=== PATIENT | male | born 1995 | race Caucasian/White ===

== ENCOUNTER 2021-06-28 14:16 | Emergency (ER) | payer OTHER, SELFPAY ==
[2021-06-28 14:28] VITALS: BP 160/100; PULSE 103; RESP 13; TEMP 36.7; O2SAT 98; BMI 31.8
--- NOTE | 2021-06-28 14:28 | ED_ITS ---
HPI - Nausea/Vomiting/Diarrhea General: Chief complaint: Nausea/Vomiting/Diarrhea Stated complaint: n/v Time Seen by Provider: 06/28/21 14:24 Source: patient Mode of arrival: ambulatory Limitations: no limitations History of Present Illness: 26-year-old male presents emergency room with nausea vomiting diarrhea that began this morning when he woke up. No fever no sweats or chills no real abdominal pain. No hematochezia melena hematemesis coffee-ground emesis no dysuria urgency or frequency. No chest pain. MD elicited complaint: nausea and vomiting Onset (ago): hour(s) Description of vomiting: watery and bilious Associated nausea: Yes Associated abdominal pain: No Location of pain: None Exacerbating factors: none Relieving factors: none Context: possible food poisoning (Patient's therapy) Associated symtoms: Reports anorexia, malaise and nausea; Denies altered mental status, anxiety, bloating, change in vision, chest pain, cough, diaphoresis, decreased urine output, dizziness, dysuria, epistaxis, fatigue, fecal incontinence, fevers/chills, headache(s), myalgias, numbness, palpitations, rash, short of breath, syncope, tenesmus, tinnitus or weakness Review of Systems Const: Reports: change in appetite and malaise; Denies: fever(s), chills, fatigue or diaphoresis Eyes: Denies: change in vision ENMT: Denies: tinnitus or epistaxis Card: Denies: chest pain, palpitations or syncope GI: Reports: nausea, vomiting and diarrhea; Denies: abdominal pain, bloating or fecal incontinence : Denies: flank pain, difficulty urinating, dysuria, urinary frequency or urinary urgency Skin/Breast: Denies: rash or pruritus Neuro: Denies: headache(s) or dizziness Psych: Denies: anxiety PFSH ED PFSH: Medical History (Updated 07/06/21 @ 00:01 by ) No significant past medical history Surgical History (Updated 06/28/21 @ 15:19 by Viet Thapa DO) History of bronchoscopy Social History (Updated 06/28/21 @ 15:19 by Viet Thapa DO) Smoking and tobacco status: never smoked Alcohol intake: current Physical Exam Const: EXAM LIMITATIONS: no altered mental status GENERAL APPEARANCE: cooperative and comfortable ORIENTATION/CONSCIOUSNESS: Yes awake, Yes oriented to person, Yes oriented to place and Yes oriented to time HENMT: COMMON NORMALS: normocephalic, atraumatic and hearing grossly normal bilaterally HEAD & SCALP: normocephalic and atraumatic Neck/C-Spine: COMMON NORMALS: no JVD Resp: COMMON NORMALS: normal respiratory effort, No retractions, No use of accessory muscles and clear to auscultation bilaterally AUSCULTATION: clear to auscultation bilaterally Cardio: COMMON NORMALS: no JVD, regular rate, regular rhythm and No murmurs present (Cardio) RATE: regular rate RHYTHM: regular rhythm GI: COMMON NORMALS: Soft to palpation and No hepatosplenomegaly present AUSCULTATION: Yes normoactive bowel sounds PALPATION: Yes Soft to palpation, No Tenderness to palpation present (GI), No Guarding due to palpation present (GI) and Yes No hepatosplenomegaly present Extremity: COMMON NORMALS: normal to inspection, capillary refill normal, no clubbing, cyanosis or edema, no calf tenderness and no pedal edema Neuro: SENSORIUM/ORIENTATION: Yes oriented to person, Yes oriented to place and Yes oriented to time Skin: COMMON NORMALS: no rashes or lesions noted GENERAL SKIN EXAM: no rashes or lesions noted Course Vital Signs: Vital signs: Vital Signs Temperature 98.0 F 06/28/21 14:28 Pulse Rate 91 06/28/21 18:14 Respiratory Rate 20 H 06/28/21 18:14 Blood Pressure 142/76 06/28/21 18:14 Pulse Oximetry 97 06/28/21 18:14 MDM - Nausea/Vomiting/Diarrhea Medical Decision Making Labs and imaging reviewed. No acute disease. We will go and discharge patient home clinical diet advance as tolerated antiemetics as needed return if has problems Medical Records I reviewed the patient's medical records. Lab Data I reviewed the patient's lab results. : 06/28/21 14:55 06/28/21 14:55 Laboratory Results WBC 19.6 10^3/uL (4.0-10.0) H 06/28/21 14:55 RBC 5.78 10^6/uL (4.1-5.3) H 06/28/21 14:55 Hgb 17.4 g/dL (11.7-16.6) H 06/28/21 14:55 Hct 51.7 % (42.0-52.0) 06/28/21 14:55 MCV 89.4 fl (80-94) 06/28/21 14:55 MCH 30.1 pg (28.0-34.0) 06/28/21 14:55 MCHC 33.7 g/dL (30.0-36.0) 06/28/21 14:55 RDW 12.4 % (12.1-15.1) 06/28/21 14:55 Plt Count 279 10^3/cmm (130-400) 06/28/21 14:55 MPV 9.3 fL (7.4-10.4) 06/28/21 14:55 Neut % (Auto) 91.2 % 06/28/21 14:55 Lymph % (Auto) 2.4 % 06/28/21 14:55 [place] % (Auto) 5.3 % 06/28/21 14:55 Eos % (Auto) 0.1 % 06/28/21 14:55 Baso % (Auto) 0.2 % 06/28/21 14:55 Neut # (Auto) 17.88 10^3/uL (1.8-7.7) H 06/28/21 14:55 Lymph # (Auto) 0.5 10^3/uL (0.8-4.8) L 06/28/21 14:55 [place] # (Auto) 1.1 10^3/uL (0.2-0.9) H 06/28/21 14:55 Eos # (Auto) 0.0 10^3/uL (0.0-0.8) 06/28/21 14:55 Baso # (Auto) 0.0 10^3/uL (0.0-0.1) 06/28/21 14:55 Nucleated RBC % (auto) 0 % 06/28/21 14:55 Nucleated RBCs # 0.0 /100WBC 06/28/21 14:55 Sodium 138 mmol/L (136-145) 06/28/21 14:55 Potassium 4.2 mmol/L (3.5-5.1) 06/28/21 14:55 Chloride 102 mmol/L (98-107) 06/28/21 14:55 Carbon Dioxide 22 mmol/L (22-29) 06/28/21 14:55 Anion Gap 18.2 (5-19) 06/28/21 14:55 BUN 16 mg/dL (6-20) 06/28/21 14:55 Creatinine 0.9 mg/dL (0.7-1.2) 06/28/21 14:55 GFR Calculation 102.0 mL/min (90-130) 06/28/21 14:55 Glucose 124 mg/dL (65-115) H 06/28/21 14:55 Calculated Osmolality 289 mOsm/kg (285-295) 06/28/21 14:55 Calcium 8.5 mg/dL (8.5-10.5) 06/28/21 14:55 Total Bilirubin 0.8 mg/dL (0.15-1.2) 06/28/21 14:55 AST 42 U/L (0-40) H 06/28/21 14:55 ALT 75 U/L (0-41) H 06/28/21 14:55 Alkaline Phosphatase 60 IU/L (40-130) 06/28/21 14:55 Total Protein 7.6 g/dL (6.6-8.7) 06/28/21 14:55 Albumin 4.8 g/dL (3.5-5.2) 06/28/21 14:55 Globulin 2.8 g/dL (1.3-4.6) 06/28/21 14:55 Lipase 20 U/L (13-60) 06/28/21 14:55 Urine Color Dark yellow (Yellow) 06/28/21 16:40 Urine Appearance Clear (CLEAR) 06/28/21 16:40 Urine pH 6 (5-7) 06/28/21 16:40 Ur Specific [place] 1.010 (1.005-1.030) 06/28/21 16:40 Urine Protein Trace (Negative) 06/28/21 16:40 Urine Glucose (UA) Norm (Normal) 06/28/21 16:40 Urine Ketones Negative (Negative) 06/28/21 16:40 Urine Blood Neg (Negative) 06/28/21 16:40 Urine Nitrate Negative (Negative) 06/28/21 16:40 Urine Bilirubin 1+ (Negative) H 06/28/21 16:40 Urine Urobilinogen Neg mg/dL (Negative) 06/28/21 16:40 Ur Leukocyte Esterase Negative (Negative) 06/28/21 16:40 Urine RBC Rare /hpf (0-2) 06/28/21 16:40 Urine WBC Rare /hpf (0-5) 06/28/21 16:40 Ur Squamous Epith Cells Rare /hpf (0-5) 06/28/21 16:40 Amorphous Sediment Not Reportable 06/28/21 16:40 Urine Bacteria Trace /hpf (NONE) 06/28/21 16:40 Urine Mucus 3+ /hpf 06/28/21 16:40 Discharge Plan Discharge Patient Disposition: Home Clinical Impression: Gastroenteritis Condition: Stable Prescriptions: New ondansetron HCl 4 mg tablet 4 mg PO Q6H PRN (Reason: nausea and vomiting) Qty: 20 0RF Discharge Orders: Discharge ED (Routine); Ordered 06/28/21 Ordered By: Viet Thapa Referrals: [facility] [Other] Discharge Diet: Clear Liquid Discharge Activity: Increase activity as tolerated Patient Instructions: Opioid Safety Activity Restrictions/Additional Instructions: Liquid diet for 24 to 48 hours then advance as tolerated Coding Level of Care Code ED Labor Crew Supervisor for Gloria Fwd Exam Comprehensive
[2021-06-28] MEDS: lactated ringers 1,000 ML 999 ML IV ×2 (14:48→16:40)
[2021-06-28] MEDS: ondansetron 2 mg/ML SDV 2 mL 4 MG IVP (14:48)
[2021-06-28 15:11] VITALS: BP 135/82; O2SAT 97
[2021-06-28 15:11] LABS: Basophils % 0.2 %; Eosinophils % 0.1 %; Hematocrit 51.7 % (42.0-52.0); Hemoglobin 17.4 g/dL (11.7-16.6); Lymphocytes # 0.5 10^3/uL (0.8-4.8); Lymphocytes % 2.4 %; Mean Corpuscular HGB Conc 33.7 g/dL (30.0-36.0); Mean Corpuscular Hemoglobin 30.1 pg (28.0-34.0); Mean Corpuscular Volume 89.4 fl (80-94); Mean Platelet Volume 9.3 fL (7.4-10.4); Monocytes # 1.1 10^3/uL (0.2-0.9); Monocytes % 5.3 %; Neutrophils # 17.88 10^3/uL (1.8-7.7); Neutrophils % 91.2 %; Nucleated Red Blood Cells % 0 %; Platelet Count 279 10^3/cmm (130-400); Red Blood Count 5.78 10^6/uL (4.1-5.3); Red Cell Distribution Width 12.4 % (12.1-15.1); White Blood Count 19.6 10^3/uL (4.0-10.0)
[2021-06-28 15:41] LABS: Alanine Aminotransferase 75 U/L (0-41); Albumin Level 4.8 g/dL (3.5-5.2); Alkaline Phosphatase 60 IU/L (40-130); Anion Gap 18.2 (5-19); Aspartate Amino Transferase 42 U/L (0-40); Blood Urea Nitrogen 16 mg/dL (6-20); Calcium 8.5 mg/dL (8.5-10.5); Carbon Dioxide 22 mmol/L (22-29); Chloride 102 mmol/L (98-107); Globulin 2.8 g/dL (1.3-4.6); Glucose 124 mg/dL (65-115); Lipase 20 U/L (13-60); Osmolality Calculated 289 mOsm/kg (285-295); Potassium 4.2 mmol/L (3.5-5.1); Sodium 138 mmol/L (136-145); Total Bilirubin 0.8 mg/dL (0.15-1.2); Total Protein 7.6 g/dL (6.6-8.7)
[2021-06-28 17:10] VITALS: BP 164/92; PULSE 90; O2SAT 99
[2021-06-28 17:23] LABS: Add Urine Microscopic? YES; Bilirubin Urine 1+ (Negative); Blood Urine Neg (Negative); Glucose Urine UA Norm (Normal); Ketones Urine Negative (Negative); Leukocyte Esterase Urine Negative (Negative); Nitrate Urine Negative (Negative); Protein Urine Trace (Negative); Urine Appearance Clear (CLEAR); Urine Color Dark Yellow (Yellow); Urobilinogen Urine Neg (Negative); pH Urine 6 (5-7)
[2021-06-28 17:25] LABS: Add Urine Culture? No; Bacteria Urine TRACE /hpf; Mucus Urine 3+ /hpf; RBC Urine RARE /hpf (0-2); Squamous Epithelial Cell Urine RARE /hpf (0-5); WBC Urine RARE /hpf (0-5)
[2021-06-28 18:14] VITALS: BP 142/76; PULSE 91; RESP 20; O2SAT 97
== END 2021-06-28 18:16 | disposition home or self-care (01) ==
PROVIDERS: Emergency Provider Family Medicine
DX: K52.9 Noninfective gastroenteritis and colitis, unspecified (principal)
CPT/HCPCS: 80053; 81001; 83690; 85025; 96361; 96374; 99283; J2405

== ENCOUNTER 2021-11-30 22:31 | Emergency (ER) | payer OTHER, SELFPAY ==
[2021-11-30 22:39] VITALS: BP 132/86; PULSE 76; RESP 16; TEMP 36.4; O2SAT 98
[2021-11-30 23:40] LABS: Basophils % 0.3 %; Eosinophils # 0.3 10^3/uL (0.0-0.8); Eosinophils % 3.9 %; Hematocrit 43.4 % (42.0-52.0); Hemoglobin 15.1 g/dL (11.7-16.6); Lymphocytes # 3.3 10^3/uL (0.8-4.8); Lymphocytes % 44.9 %; Mean Corpuscular HGB Conc 34.8 g/dL (30.0-36.0); Mean Corpuscular Hemoglobin 29.7 pg (28.0-34.0); Mean Corpuscular Volume 85.4 fl (80-94); Mean Platelet Volume 9.6 fL (7.4-10.4); Monocytes # 0.9 10^3/uL (0.2-0.9); Monocytes % 12.7 %; Neutrophils # 2.77 10^3/uL (1.8-7.7); Neutrophils % 37.5 %; Nucleated Red Blood Cells % 0 %; Platelet Count 276 10^3/cmm (130-400); Red Blood Count 5.08 10^6/uL (4.1-5.3); White Blood Count 7.4 10^3/uL (4.0-10.0)
--- NOTE | 2021-12-01 | CTR_ITS ---
PROCEDURE INFORMATION: Exam: CT Abdomen And Pelvis With Contrast Exam date and time: 12/01/2021 12:09 AM Age: 26 years old Clinical indication: Abdominal pain; Localized; Right upper quadrant (ruq); Patient HX: C/O ruq/periumbilical pain; Additional info: Right upper quadrant abdominal pain-severe TECHNIQUE: Imaging protocol: Computed tomography of the abdomen and pelvis with contrast. Radiation optimization: All CT scans at this facility use at least one of these dose optimization techniques: automated exposure control; mA and/or kV adjustment per patient size (includes targeted exams where dose is matched to clinical indication); or iterative reconstruction. Contrast material: OMNI 350; Contrast volume: 80 ml; Contrast route: INTRAVENOUS (IV); COMPARISON: No relevant prior studies available. RADIATION DOSE METRICS: Total DLP (mGy-cm): 1074.77 FINDINGS: Liver: Normal. No mass. Gallbladder and bile ducts: Contracted gallbladder. Pancreas: Normal. No ductal dilation. Spleen: One or more accessory splenules. Adrenal glands: Normal. No mass. Kidneys and ureters: Normal. No hydronephrosis. Stomach and bowel: Unremarkable. No obstruction. No mucosal thickening. Appendix: Normal appendix. Intraperitoneal space: Unremarkable. No free air. No significant fluid collection. Vasculature: Unremarkable. No abdominal aortic aneurysm. Lymph nodes: Unremarkable. No enlarged lymph nodes. Urinary bladder: Unremarkable as visualized. Reproductive: Unremarkable as visualized. Bones/joints: Unremarkable. No acute fracture. Soft tissues: Unremarkable. CT/CT abdomen pelvis w con* [id number] IMPRESSION: No acute findings.
[2021-12-01 00:01] LABS: Alanine Aminotransferase 27 U/L (0-41); Albumin Level 4.2 g/dL (3.5-5.2); Alkaline Phosphatase 62 U/L (40-130); Anion Gap 13.6 (5-19); Aspartate Amino Transferase 42 U/L (0-40); Blood Urea Nitrogen 11 mg/dL (6-20); Calcium 8.9 mg/dL (8.5-10.5); Carbon Dioxide 27 mmol/L (22-29); Chloride 104 mmol/L (98-107); Globulin 2.7 g/dL (1.3-4.6); Glomerular Filtration Rate 116.9 mL/min (90-130); Glucose 90 mg/dL (65-115); Lipase 36 U/L (13-60); Osmolality Calculated 291 mOsm/kg (285-295); Potassium 3.6 mmol/L (3.5-5.1); Sodium 141 mmol/L (136-145); Total Bilirubin 0.4 mg/dL (0.15-1.2); Total Protein 6.9 g/dL (6.6-8.7)
[2021-12-01] MEDS: iohexol 350 mg/mL 100 mL Btl IV (00:12)
[2021-12-01 00:34] VITALS: RESP 16; O2SAT 99
[2021-12-01] MEDS: fentaNYL 50 mcg/mL INJ 2mL 25 MCG IVP (00:34)
--- NOTE | 2021-12-01 01:26 | USR_ITS ---
PROCEDURE INFORMATION: Exam: US Abdomen, Limited; Right Upper Quadrant Exam date and time: 12/01/2021 1:49 AM Age: 26 years old Clinical indication: Abdominal pain; Periumbilical; Patient HX: Pain 2 days. Eating does not change pain; Additional info: Ruq abd pain, gallbladder TECHNIQUE: Imaging protocol: Real time ultrasound of the abdomen with image documentation. Limited exam focused on the right upper quadrant. COMPARISON: CT abdomen pelvis w con* [id number] 12/01/2021 12:09 AM FINDINGS: Liver: 17.4 cm liver. Gallbladder: Normal 2 mm gallbladder wall. Biliary ducts: 5.1 mm common bile duct which is normal. Pancreas: Visualized pancreas is unremarkable. Right kidney: 10.7 x 4.3 x 5.7 cm right kidney. 1.4 cm right renal cortex. 2.1 cm maximum abdominal aortic diameter. Inferior vena cava: 1.3 cm diameter IVC. US/US abdomen limited [id number] IMPRESSION: Normal gallbladder.
--- NOTE | 2021-12-01 01:53 | W.ED.ABDPA2 ---
Documented by User: HAROLDO Whitehead 12/01/21 02:41 HPI - Abdominal Pain General: Chief Complaint: Abdominal Pain Stated Complaint: abd pain Time Seen by Provider: 11/30/21 23:40 History of Present Illness: 26-year-old male patient that is in today for right upper quadrant abdominal pain x3 days. Patient reports that 2 to 3 days ago he started having right upper quadrant abdominal pain. He denies any injury to the area. He reports that the pain is pretty sharp. He reports that it is worse with palpation and movement. He reports that he has had this pain in the past a couple of months ago and it lasted a couple of days and then went away. He denies any fever, chills, nausea, vomiting. He denies radiation of pain. He denies urinary symptoms. He denies any previous abdominal surgery. Associated Symptoms: Denies change in bowel habits, chills, constipation, diarrhea, dysuria, fever(s), nausea and vomiting Review of Systems Const: Denies: fever(s), chills or body aches Card: Denies: chest pain or palpitations Resp: Denies: dyspnea GI: Reports: abdominal pain; Denies: nausea, vomiting, diarrhea, constipation or change in bowel habits : Denies: flank pain, difficulty urinating, dysuria, urinary frequency, urinary urgency or urinary hesitancy [facility] ED PFSH: Medical History No significant past medical history Surgical History History of bronchoscopy Social History Smoking and tobacco status: never smoked Alcohol intake: current Physical Exam Const: COMMON NORMALS: no acute distress, patient oriented x3 and alert NUTRITIONAL APPEARANCE: obese Neck/C-Spine: COMMON NORMALS: no JVD Resp: COMMON NORMALS: normal respiratory effort, No retractions, No use of accessory muscles and clear to auscultation bilaterally AUSCULTATION: clear to auscultation bilaterally Cardio: COMMON NORMALS: no JVD, regular rate, regular rhythm, S1 normal heart sound present, S2 normal heart sound present and No murmurs present (Cardio) RATE: regular rate RHYTHM: regular rhythm HEART SOUNDS: S1 normal heart sound present and S2 normal heart sound present GI: COMMON NORMALS: Normal to inspection, nondistended, normoactive bowel sounds present and Soft to palpation PALPATION: Yes Soft to palpation, Yes Tenderness to palpation present (GI) Details: RLQ and RUQ and Yes Guarding due to palpation present (GI) in the RUQ Neuro: COMMON NORMALS: patient oriented x3 SENSORIUM/ORIENTATION: Yes alert Course Vital Signs: Vital signs: Vital Signs Temperature 97.5 F L 11/30/21 22:39 Pulse Rate 76 11/30/21 22:39 Respiratory Rate 16 12/01/21 00:34 Blood Pressure 132/86 11/30/21 22:39 Pulse Oximetry 99 12/01/21 00:34 Oxygen Delivery Me thod 11/30/21 22:39 MDM - Abdominal Pain Medical Decision Making 26-year-old male patient in today for right upper quadrant abdominal pain. He has had this in the past a couple of different times seems to last for a day or 2 and then goes away. His white blood cell count is normal, his lipase is normal, his CT abdomen and pelvis is unremarkable. His symptoms appear consistent with biliary colic. Patient recalls his diet from the day and it was pizza, salami. Limited abdominal ultrasound ordered. 1 dose of pain medication given 25 mcg fentanyl. Gallbladder ultrasound is negative. I discussed results of testing with patient, at length. I advised patient symptoms seem consistent with biliary colic. We discussed dietary modifications to help control this. We discussed the potential that patient may need an outpatient HIDA scan. I advised that I would defer this to his primary care provider for continued monitoring and evaluation as they deem necessary. Advised patient to return to the ER as needed for new or worsening symptoms. Lab Data : 11/30/21 23:25 11/30/21 23:25 Labs/Radiology: Radiology Impressions Abdomen/Pelvis CT 12/01/21 00:00 IMPRESSION: No acute findings. Abdomen Ultrasound 12/01/21 01:26 IMPRESSION: Normal gallbladder. Laboratory Results WBC 7.4 10^3/uL (4.0-10.0) 11/30/21 23:25 RBC 5.08 10^6/uL (4.1-5.3) 11/30/21 23:25 Hgb 15.1 g/dL (11.7-16.6) 11/30/21 23:25 Hct 43.4 % (42.0-52.0) 11/30/21 23: MCV 85.4 fl (80-94) 11/30/21 23: MCH 29.7 pg (28.0-34.0) 11/30/21 23: MCHC 34.8 g/dL (30.0-36.0) 11/30/21: RDW 12.0 % (12.1-15.1) L 11/30/21 23: Plt Count 276 10^3/cmm (130-400) 11/30/21 23: MPV 9.6 fL (7.4-10.4) 11/30/21: Neut % (Auto) 37.5 % 11/30/21: Lymph % (Auto) 44.9 % 11/30/21: [place] % (Auto) 12.7 % 11/30/21: Eos % (Auto) 3.9 % 11/30/21 23: Baso % (Auto) 0.3 % 11/30/21: Neut # (Auto) 2.77 10^3/uL (1.8-7.7) 11/30/21: Lymph # (Auto) 3.3 10^3/uL (0.8-4.8) 11/30/21: [place] # (Auto) 0.9 10^3/uL (0.2-0.9) 11/30/21: Eos # (Auto) 0.3 10^3/uL (0.0-0.8) 11/30/21: Baso # (Auto) 0.0 10^3/uL (0.0-0.1) 11/30/21: Nucleated RBC % (auto) 0 % 11/30/21: Nucleated RBCs # 0.0 /100WBC 11/30/21 23: Sodium 141 mmol/L (136-145) 11/30/21 23:25 Potassium 3.6 mmol/L (3.5-5.1) 11/30/21: Chloride 104 mmol/L (98-107) 11/30/21 23:25 Carbon Dioxide 27 mmol/L (22-29) 11/30/21 23:25 Anion Gap 13.6 (5-19) 11/30/21 23:25 BUN 11 mg/dL (6-20) 11/30/21 23:25 Creatinine 0.8 mg/dL (0.7-1.2) 11/30/21 23:25 GFR Calculation 116.9 mL/min (90-130) 11/30/21 23:25 Glucose 90 mg/dL (65-115) 11/30/21 23:25 Calculated Osmolality 291 mOsm/kg (285-295) 11/30/21 23:25 Calcium 8.9 mg/dL (8.5-10.5) 11/30/21 23:25 Total Bilirubin 0.4 mg/dL (0.15-1.2) 11/30/21 23:25 AST 42 U/L (0-40) H 11/30/21 23:25 ALT 27 U/L (0-41) 11/30/21 23:25 Alkaline Phosphatase 62 U/L (40-130) 11/30/21 23:25 Total Protein 6.9 g/dL (6.6-8.7) 11/30/21 23:25 Albumin 4.2 g/dL (3.5-5.2) 11/30/21 23:25 Globulin 2.7 g/dL (1.3-4.6) 11/30/21 23:25 Lipase 36 U/L (13-60) 11/30/21 23:25 Discharge Plan Discharge Patient Disposition: Home Clinical Impression: Biliary colic Condition: Stable Prescriptions: No Action ondansetron HCl 4 mg tablet 4 mg PO Q6H PRN (Reason: nausea and vomiting) Qty: 20 0RF Discharge Orders: Discharge ED (Routine); Ordered 12/01/21 Ordered By: Charito Monroy Discharge Diet: Low Fat Discharge Activity: Increase activity as tolerated Patient Instructions: Biliary Colic (ED), Abdominal Pain (ED) Activity Restrictions/Additional Instructions: Your CT scan and abdominal ultrasound today did not show any acute process in the gallbladder, appendix, abdomen. I recommend a diet to help with biliary colic including decreased caffeine, decrease nicotine, decrease fried fatty foods, decrease red sauce. Follow-up with primary care next week for continued evaluation. You may need a HIDA scan for further evaluation. Return to the ER as needed for any new or worsening symptoms. Coding Level of Care Code ED Solar Resource Assessor for Chg Fwd Exam Detailed Documented by User: Guillermo Worthington DO 12/01/21 02:42 HPI - Abdominal Pain General: Chief Complaint: Abdominal Pain Stated Complaint: abd pain Time Seen by Provider: 11/30/21 23:40 PFSH ED PFSH: Medical History No significant past medical history Surgical History History of bronchoscopy Social History Smoking and tobacco status: never smoked Alcohol intake: current Course Vital Signs: Vital signs: Vital Signs Temperature 97.5 F L 11/30/21 22:39 Pulse Rate 76 11/30/21 22:39 Respiratory Rate 16 12/01/21 00:34 Blood Pressure 132/86 11/30/21 22:39 Pulse Oximetry 99 12/01/21 00:34 Oxygen Delivery Me thod 11/30/21 22:39 MDM - Abdominal Pain Medical Decision Making 26-year-old male patient in today for right upper quadrant abdominal pain. He has had this in the past a couple of different times seems to last for a day or 2 and then goes away. His white blood cell count is normal, his lipase is normal, his CT abdomen and pelvis is unremarkable. His symptoms appear consistent with biliary colic. Patient recalls his diet from the day and it was pizza, salami. Limited abdominal ultrasound ordered. 1 dose of pain medication given 25 mcg fentanyl. Gallbladder ultrasound is negative. I discussed results of testing with patient, at length. I advised patient symptoms seem consistent with biliary colic. We discussed dietary modifications to help control this. We discussed the potential that patient may need an outpatient HIDA scan. I advised that I would defer this to his primary care provider for continued monitoring and evaluation as they deem necessary. Advised patient to return to the ER as needed for new or worsening symptoms. This patient was originally seen by MARLINE Bello.? I agree with her history, evaluation, and treatment. Lab Data : 11/30/21 23:25 11/30/21 23:25 Labs/Radiology: Radiology Impressions Abdomen/Pelvis CT 12/01/21 00:00 IMPRESSION: No acute findings. Abdomen Ultrasound 12/01/21 01:26 IMPRESSION: Normal gallbladder. Laboratory Results WBC 7.4 10^3/uL (4.0-10.0) 11/30/21 23: RBC 5.08 10^6/uL (4.1-5.3) 11/30/21 23: Hgb 15.1 g/dL (11.7-16.6) 11/30/21 23:25 Hct 43.4 % (42.0-52.0) 11/30/21 23: MCV 85.4 fl (80-94) 11/30/21 23:25 MCH 29.7 pg (28.0-34.0) 11/30/21 23: MCHC 34.8 g/dL (30.0-36.0) 11/30/21 23:25 RDW 12.0 % (12.1-15.1) L 11/30/21 23: Plt Count 276 10^3/cmm (130-400) 11/30/21 23:25 MPV 9.6 fL (7.4-10.4) 11/30/21 23:25 Neut % (Auto) 37.5 % 11/30/21 23:25 Lymph % (Auto) 44.9 % 11/30/21 23:25 [place] % (Auto) 12.7 % 11/30/21 23:25 Eos % (Auto) 3.9 % 11/30/21 23: Baso % (Auto) 0.3 % 11/30/21 23:25 Neut # (Auto) 2.77 10^3/uL (1.8-7.7) 11/30/21 23:25 Lymph # (Auto) 3.3 10^3/uL (0.8-4.8) 11/30/21 23:25 [place] # (Auto) 0.9 10^3/uL (0.2-0.9) 11/30/21 23:25 Eos # (Auto) 0.3 10^3/uL (0.0-0.8) 11/30/21 23:25 Baso # (Auto) 0.0 10^3/uL (0.0-0.1) 11/30/21 23:25 Nucleated RBC % (auto) 0 % 11/30/21 23:25 Nucleated RBCs # 0.0 /100WBC 11/30/21 23:25 Sodium 141 mmol/L (136-145) 11/30/21 23:25 Potassium 3.6 mmol/L (3.5-5.1) 11/30/21 23:25 Chloride 104 mmol/L (98-107) 11/30/21 23:25 Carbon Dioxide 27 mmol/L (22-29) 11/30/21 23:25 Anion Gap 13.6 (5-19) 11/30/21 23:25 BUN 11 mg/dL (6-20) 11/30/21 23:25 Creatinine 0.8 mg/dL (0.7-1.2) 11/30/21 23:25 GFR Calculation 116.9 mL/min (90-130) 11/30/21 23:25 Glucose 90 mg/dL (65-115) 11/30/21 23:25 Calculated Osmolality 291 mOsm/kg (285-295) 11/30/21 23:25 Calcium 8.9 mg/dL (8.5-10.5) 11/30/21 23:25 Total Bilirubin 0.4 mg/dL (0.15-1.2) 11/30/21 23:25 AST 42 U/L (0-40) H 11/30/21 23:25 ALT 27 U/L (0-41) 11/30/21 23:25 Alkaline Phosphatase 62 U/L (40-130) 11/30/21 23:25 Total Protein 6.9 g/dL (6.6-8.7) 11/30/21 23:25 Albumin 4.2 g/dL (3.5-5.2) 11/30/21 23:25 Globulin 2.7 g/dL (1.3-4.6) 11/30/21 23:25 Lipase 36 U/L (13-60) 11/30/21 23:25 Discharge Plan Discharge Patient Disposition: Home Clinical Impression: Biliary colic Condition: Stable Prescriptions: No Action ondansetron HCl 4 mg tablet 4 mg PO Q6H PRN (Reason: nausea and vomiting) Qty: 20 0RF Discharge Orders: Discharge ED (Routine); Ordered 12/01/21 Ordered By: Charito Monroy Discharge Diet: Low Fat Discharge Activity: Increase activity as tolerated Patient Instructions: Biliary Colic (ED), Abdominal Pain (ED) Activity Restrictions/Additional Instructions: Your CT scan and abdominal ultrasound today did not show any acute process in the gallbladder, appendix, abdomen. I recommend a diet to help with biliary colic including decreased caffeine, decrease nicotine, decrease fried fatty foods, decrease red sauce. Follow-up with primary care next week for continued evaluation. You may need a HIDA scan for further evaluation. Return to the ER as needed for any new or worsening symptoms. Coding Level of Care Code ED Solar Resource Assessor for Chg Fwd Exam Detailed
== END 2021-12-01 02:56 | disposition home or self-care (01) ==
PROVIDERS: Emergency Medicine; Emergency Provider Nurse Practitioner Family
DX: R10.84 Generalized abdominal pain (principal)
CPT/HCPCS: 74177; 76705; 80053; 83690; 85025; 96374; 99285; J3010; Q9967

== ENCOUNTER → 2021-12-26 08:46 | Outpatient (BNVA) | payer OTHER, SELFPAY | PROVIDERS: PCP Emergency Medicine Emergency Medical Services; Visit Provider Surgery | DX: K76.0 Fatty (change of) liver, not elsewhere classified (principal); R10.11 Right upper quadrant pain | CPT/HCPCS: 99203 ==